=== PATIENT | male | born 1985 | race Caucasian/White ===

== ENCOUNTER 2016-11-26 08:25 | Outpatient (CLI) | payer BC ==
--- NOTE | 2016-11-26 11:35 | Diagnostic Imaging Report ---
[facility] [address] [facility].[address] [id number] Report Submission Date: Nov 26, 2016 11:27:26 AM CDT Patient Study Name: DAVONTE PACK Date: Nov 26, 2016 8:37:03 AM CDT Modality Type: US Gender: M Description: US SCROTUM & CONTENTS : 87 Institution: [facility] Physician: KAMLESH INWOOD Examination: Ultrasound extremity/groin History: Palpable lump Comparison exams: None available Findings: Sonographic evaluation of the right groin demonstrates a solid cystic nodular density measuring 2.0 x 1.4 x 1.9 cm. Flow along the periphery and centrally on color analysis. No other soft tissue density or abnormal fluid collection. Impression: Small cystic nodule, likely representing an inflamed lymph node. Follows warranted. Electronically signed on Nov 26, 2016 11:27:26 AM CDT by: Guanako MCCLELLAN
== END 2016-11-26 08:26 ==
LOC: RAD 08:25
PROVIDERS: ATTEND Family Medicine
DX: L02.214 Cutaneous abscess of groin (principal)
CPT/HCPCS: 76999